=== PATIENT | female | born 1950 | race Caucasian/White ===

== ENCOUNTER 2023-10-20 17:39 | Emergency (ER) | payer OTHER ==
[~2023-10-20] VITALS: Ht 144.8 cm; Wt 59.0 kg
[2023-10-20 18:04] VITALS: BP_SYST 109; PULSE 88; RESP 18; TEMP 97.4; O2SAT 98
[2023-10-20 18:50] LABS: BASOPHILS % (AUTO) 0.6 % (0.0-2.0); EOSINOPHILS # (AUTO) 0.2 K/uL (0.0-0.4); EOSINOPHILS % (AUTO) 2.2 % (0.0-4.0); HEMATOCRIT 35.4 % (36-48); HEMOGLOBIN 11.8 g/dL (12.0-16.0); LYMPHOCYTES # (AUTO) 1.8 K/uL (1.0-5.5); MEAN CORPUSCULAR HEMOGLOBIN 28 pg (27-31); MEAN CORPUSCULAR HGB CONC 33 % (32-36); MEAN CORPUSCULAR VOLUME 85 fL (79.0-98.0); MONOCYTES # (AUTO) 0.6 K/uL (0.0-1.0); NEUTROPHILS # (AUTO) 4.8 K/uL (1.8-7.7); NEUTROPHILS % (AUTO) 65.2 % (40.0-70.0); PLATELET COUNT (AUTO) 313 K/uL (130-430); RED BLOOD CELL COUNT(AUTO) 4.19 MIL/uL (4.2-6.2); RED CELL DISTRIBUTION WIDTH 15.8 % (9.0-15.0); WHITE BLOOD COUNT (AUTO) 7.4 K/uL (4.8-10.8)
[2023-10-20 19:03] LABS: ALANINE AMINOTRANSFERASE 16 U/L (12-78); ANION GAP 8 (5-15); ASPARTATE AMINOTRANSFERASE 16 U/L (10-37); BILIRUBIN,DIRECT 0.1 mg/dL (0.0-0.3); CALCIUM 9.3 mg/dL (8.4-11.0); CARBON DIOXIDE 28 mmol/L (23-29); CHLORIDE 106 mmol/L (98-107); CREATININE 1.62 mg/dL (0.55-1.30); GLUCOSE 97 mg/dL (74-106); POTASSIUM 4.3 mmol/L (3.5-5.1); SODIUM SERUM 142 mmol/L (136-145); TOTAL BILIRUBIN 0.2 mg/dL (0.0-1.0); TOTAL PROTEIN, SERUM 6.6 g/dL (6.4-8.3); UREA NITROGEN, BLOOD 20 mg/dL (8-21)
[2023-10-20 21:30] VITALS: BP_SYST 109; PULSE 88; RESP 18; TEMP 97.4; O2SAT 98
[2023-10-20 21:56] LABS: BILIRUBIN,URINE NEGATIVE (NEGATIVE); COLOR,URINE YELLOW (YELLOW); GLUCOSE,URINE NEGATIVE (NEGATIVE); KETONES,URINE NEGATIVE (NEGATIVE); LEUKOCYTE ESTERASE ,URINE 2+ (NEGATIVE); NITRITE, URINE NEGATIVE (NEGATIVE); PROTEIN URINE TRACE (NEGATIVE); UROBILINOGEN,URINE 0.2 (0.2-1.0)
[2023-10-20 21:57] LABS: BLOOD, URINE TRACE (NEGATIVE)
[2023-10-20 21:58] LABS: CLARITY/URINE HAZY (CLEAR)
[2023-10-20 22:05] LABS: WBC,URINE >100 /HPF (0-3)
[2023-10-20 22:06] LABS: BACTERIA,URINE MANY /HPF (None Seen); MUCUS,URINE None Seen /LPF (None Seen)
== END 2023-10-20 21:30 | disposition home or self-care (01) ==
LOC: SED 17:39
DX: R53.1 Weakness (principal); R91.1 Solitary pulmonary nodule; R10.84 Generalized abdominal pain; R60.0 Localized edema; R63.0 Anorexia; Z85.42 Personal history of malignant neoplasm of other parts of uterus
CPT/HCPCS: 36415; 80048; 80076; 81000; 81001; 81015; 85025; 85379; 87086; 87186; 93970; 99284

== ENCOUNTER 2023-10-27 02:29 | Emergency (ER) | payer OTHER ==
[~2023-10-27] VITALS: Ht 152.4 cm; Wt 59.4 kg
[2023-10-27 02:44] VITALS: BP_SYST 157; PULSE 84; RESP 18; TEMP 97.1; O2SAT 98
[2023-10-27] MEDS: ONDANSETRON HCL 4 MG/2 ML VIAL IVP ONE (03:22)
[2023-10-27] MEDS: MORPHINE 2 MG/ML INJ. SYRINGE IVP ONE ×2 (03:23→04:15)
[2023-10-27] MEDS: IPRATROPIUM/ALBUTEROL SULFATE 3 ML AMPUL.NEB (DUONEB) INH ONE (03:28)
[2023-10-27 03:37] LABS: INFLUENZA TYPE A Negative (NEGATIVE); INFLUENZA TYPE B NEGATIVE (NEGATIVE)
[2023-10-27 03:38] LABS: ANION GAP 8 (5-15); CALCIUM 9.1 mg/dL (8.4-11.0); CARBON DIOXIDE 27 mmol/L (23-29); CHLORIDE 105 mmol/L (98-107); CREATININE 1.23 mg/dL (0.55-1.30); GLUCOSE 126 mg/dL (74-106); POTASSIUM 4.1 mmol/L (3.5-5.1); SODIUM SERUM 140 mmol/L (136-145); UREA NITROGEN, BLOOD 25 mg/dL (8-21)
[2023-10-27 03:51] LABS: COVID19 ANTIGEN SOFIA FIA NEGATIVE (NEGATIVE)
[2023-10-27] MEDS: cefTRIAXone 1 GM IVPB PREMIX 50 ML IV ONE (03:52)
[2023-10-27 03:58] LABS: BASOPHILS % (AUTO) 0.5 % (0.0-2.0); EOSINOPHILS # (AUTO) 0.4 K/uL (0.0-0.4); HEMATOCRIT 36.6 % (36-48); LYMPHOCYTES # (AUTO) 2.1 K/uL (1.0-5.5); LYMPHOCYTES % (AUTO) 39.9 % (20.5-51.5); MEAN CORPUSCULAR HEMOGLOBIN 28 pg (27-31); MEAN CORPUSCULAR HGB CONC 33 % (32-36); MEAN CORPUSCULAR VOLUME 85 fL (79.0-98.0); MONOCYTES # (AUTO) 0.6 K/uL (0.0-1.0); MONOCYTES % (AUTO) 11.8 % (1.7-9.3); NEUTROPHILS # (AUTO) 2.1 K/uL (1.8-7.7); NEUTROPHILS % (AUTO) 40.8 % (40.0-70.0); PLATELET COUNT (AUTO) 371 K/uL (130-430); RED BLOOD CELL COUNT(AUTO) 4.29 MIL/uL (4.2-6.2); RED CELL DISTRIBUTION WIDTH 16.2 % (9.0-15.0); WHITE BLOOD COUNT (AUTO) 5.2 K/uL (4.8-10.8)
[2023-10-27] MEDS ORDERED: AMOX-423 PO (05:18)
[2023-10-27] MEDS ORDERED: ALBMDI INH (05:19)
[2023-10-27] MEDS: HYDROcodone/ACETAMIN 5-325 MG TAB (NORCO/ VICODIN) PO ONE (07:38)
[2023-10-27] MEDS ORDERED: IBUP-1969 PO (09:31)
[2023-10-27 10:00] VITALS: BP_SYST 122; PULSE 92; RESP 18; TEMP 97.4; O2SAT 96
== END 2023-10-27 09:41 | disposition home or self-care (01) ==
LOC: SED 02:29
DX: J20.9 Acute bronchitis, unspecified (principal); R05.9 Cough, unspecified; R51.9 Headache, unspecified; E11.9 Type 2 diabetes mellitus without complications; I10 Essential (primary) hypertension; Z85.42 Personal history of malignant neoplasm of other parts of uterus; Z20.822 Contact with and (suspected) exposure to COVID-19
CPT/HCPCS: 99285; 96365; 70450; 96375; 71045; 87426; 80048; 83880; 85025; 84484; 36415; 93005; 94640; 83605; 87804 ×2; J0696; J2405; J2270